=== PATIENT | female | born 1960 | race African-American/Black ===

== ENCOUNTER 2017-01-13 15:55 | Emergency (ER) | payer MEDICAID, OTHER ==
[~2017-01-13] VITALS: Ht 160 cm; Wt 66.0 kg
[2017-01-13] MEDS ORDERED: TETANUS, DIPHTHERIA, PERTUSSIS VAC/PF 0.5ML (>7YR OLD) IM ONE (16:15)
[2017-01-13] MEDS ORDERED: LIDOCAINE HCL 1%/EPI 1:200,000 30 ML VIAL MC ONE (16:15)
[2017-01-13] MEDS ORDERED: ACETAMINOPHEN 500MG TABLET PO ONE (16:15)
[2017-01-13 16:52] VITALS: BP 136/85
[2017-01-13] MEDS ORDERED: BACITRACIN ZINC OINT UDPKT TOP ONE (17:00)
== END 2017-01-13 18:44 | disposition home or self-care (01) ==
LOC: ER 16:13
DX: S51.011A Laceration without foreign body of right elbow, initial encounter (principal); E11.9 Type 2 diabetes mellitus without complications; I10 Essential (primary) hypertension; W01.0XXA Fall on same level from slipping, tripping and stumbling without subsequent striking against object, initial encounter; Y93.89 Activity, other specified; Y92.89 Other specified places as the place of occurrence of the external cause; Y99.8 Other external cause status; Z88.6 Allergy status to analgesic agent
CPT/HCPCS: 12001; 73080; 73090; 90471; 90715; 99284; X7700; Z7610